=== PATIENT | female | born 1960 | race Caucasian/White ===

== ENCOUNTER 2017-08-26 07:43 | Day surgery (SDC) | payer MEDICAID, OTHER, SELFPAY ==
[2017-08-26] MEDS ORDERED: Midazolam 1 MG/ML 2 ML SDV ONE (07:50)
[2017-08-26] MEDS ORDERED: Propofol 200 MG/20 ML SDV ONE ×3 (07:50→09:17)
[2017-08-26] MEDS ORDERED: Lactated Ringers 1,000 ML IV SCH (08:00)
[2017-08-26] MEDS ORDERED: Sodium Chloride 0.9% 5 ML Syringe FLUSH PRN (08:00)
[2017-08-26] MEDS ORDERED: Lactated Ringers 1,000 ML ONE (09:19)
[2017-08-26] MEDS ORDERED: Propofol 200 MG/20 ML SDV IV ONE (09:22)
[2017-08-26] MEDS ORDERED: Midazolam 1 MG/ML 2 ML SDV IV ONE (09:22)
--- NOTE | 2017-08-26 10:55 | PCM.PRNOTE ---
- Free Text/Narrative Note: PROCEDURE PERFORMED: Colonoscopy PRE-PROCEDURE DIAGNOSIS/INDICATION FOR PROCEDURE: Screening s/p positive FIT 07/2017 CONSENT: Informed consent was obtained prior to the procedure after discussion of the risks (including pain, bleeding, infection, perforation, adverse reaction to anesthesia, cardiovascular event), benefits and alternatives and expected outcomes were discussed with the patient. The patient expressed understanding and wished to proceed. Verbal consent given and consent form signed. PROCEDURAL PAUSE: Completed SEDATION: Per anesthesia staff DESCRIPTION OF PROCEDURE: Ms. Faustin was brought back to the OR and placed in the left lateral decubitus position. After adequate sedation and anesthetic was administered, a rectal exam was performed revealing healed internal and external hemorrhoids. A lubricated video colonoscope was inserted into the rectum and air insufflation was performed. The colonoscope was advanced through the rectum, sigmoid, descending, transverse, and ascending colon without difficulties. The cecum was reached and the ileocecal valve as well as the appendiceal orifice were identified and pictorially documented. After adequate visualization of the cecum, the scope was withdrawn, giving 360-degree views of the colonic mucosa and retroflexion was performed in the rectum with the following findings noted: Ileocecal valve: Normal Cecum: Normal Ascending colon: Normal Hepatic flexure: Normal Transverse colon: Normal Splenic flexure: Normal Descending colon: 0.3cm polyp at 65cm removed with cold forceps Sigmoid colon: 0.3cm polyp at 35cm removed with cold forceps; 0.3cm and 0.2cm polyps at 15cm removed with cold forceps Rectum: Mild internal hemorrhoids noted on retroflexion The scope was straightened, air suction performed, and the scope withdrawn without complication. Preparation adequacy fair. IMPRESSION: Colonoscopy performed revealing 4 polyps in the descending and sigmoid colon removed with cold forceps and sent for pathology and internal and external hemorrhoids. PLAN: Follow-up in the clinic in 1 week for pathology results.
[2017-08-26 12:01] VITALS: BP 151/71
== END 2017-08-26 12:25 | disposition home or self-care (01) ==
LOC: KA.SDS 07:43
PROVIDERS: ATTEND Family Medicine
DX: Z12.11 Encounter for screening for malignant neoplasm of colon (principal); K63.5 Polyp of colon; K64.8 Other hemorrhoids; K64.4 Residual hemorrhoidal skin tags; K63.89 Other specified diseases of intestine; F33.1 Major depressive disorder, recurrent, moderate; I63.9 Cerebral infarction, unspecified; J44.9 Chronic obstructive pulmonary disease, unspecified; E78.5 Hyperlipidemia, unspecified; F41.9 Anxiety disorder, unspecified; Z79.899 Other long term (current) drug therapy; Z88.8 Allergy status to other drugs, medicaments and biological substances; Z90.49 Acquired absence of other specified parts of digestive tract; Z98.51 Tubal ligation status; Z98.890 Other specified postprocedural states; F17.210 Nicotine dependence, cigarettes, uncomplicated
CPT/HCPCS: 45380; J2250; J2704; J7120

== ENCOUNTER 2023-04-27 12:00 | Emergency (ER) | payer MEDICAID, MEDICARE ==
[2023-04-27 14:54] VITALS: BP 108/60; PULSE 53
== END 2023-04-27 12:25 | disposition home or self-care (01) ==
LOC: KA.ED 12:00
DX: M77.12 Lateral epicondylitis, left elbow (principal); J43.9 Emphysema, unspecified; Z79.899 Other long term (current) drug therapy
CPT/HCPCS: 99283